=== PATIENT | male | born 1955 | race Caucasian/White ===

== ENCOUNTER 2024-09-20 07:57 | Day surgery (SDC) | payer MEDICARE, OTHER, SELFPAY ==
[2024-09-12 06:15] VITALS: BMI 27.6
[2024-09-20] VITALS (11 sets, daily range): BP systolic 106–129; BP diastolic 64–81; BMI 27.2
[2024-09-20 10:23] LABS: ACT-LR - POC 308 Seconds (116-155)
[2024-09-20 10:42] LABS: ACT-LR - POC 308 Seconds (116-155)
[2024-09-20 11:03] LABS: ACT-LR - POC 292 Seconds (116-155)
--- NOTE | 2024-09-20 11:17 | ITS.CL.ABL ---
[employer] Manager - Ablation
Ablation
Procedure Report:
ELECTROPHYSIOLOGY ABLATION STUDY
�
DATE:: September 20, 2024�����������������������������REFERRING: Dr. Oscar Morris
�
INDICATION: Paroxysmal supraventricular tachycardia in the form of atrial fibrillation.��Atypical atrial flutter
�
HISTORY: See H and P.��As above
�
ANTIARRHYTHMIC DRUG: Metoprolol
�
PRE-PROCEDURE FRANKIE: No atrial thrombus
�
PRESENTING RHYTHM: Sinus bradycardia
�
'TIME-OUT':��called and confirmed.
�
SEDATION/ANESTHESIA:��provided via the anesthesia department using general anesthesia (LMA).
�
INTRAVENOUS/ARTERIAL ACCESS:
Right femoral venous - 8Fr
Left femoral venous - 8 Fr, 6 Fr
Ultrasound guidance for bilateral femoral vein access was utilized by me to obtain access with demonstration of normal anatomy
CHADS-VASC Score:
�
HAS-Bled Score
�
PROCEDURE:
1.��A decapolar CS catheter was placed within the CS for mapping and pacing.��This was also used as the reference catheter for the 3-D map.
�
2. The intracardiac ultrasound catheter was positioned in the RA to identify the FO for targeting of transseptal puncture, assist��in identification of the pulmonary vein ostia, monitoring pre and post ablation pulmonary vein flow velocities,
monitoring for 'bubble' formation during RF application as a sign of thermal injury,��and to monitor for pericardial effusion during mapping and ablation procedure.���Left atrial size, LV ejection fraction, and pulmonary vein flows were monitored
pre and post ablation procedure. The other valves were inspected and found to be free of significant regurgitation or stenosis.
�
3.��Half of the calculated heparin bolus was administered prior to the first transeptal puncture.��Transseptal puncture was performed to diagnose RA and LA pressure so that safety of LA mapping and ablation could be further assessed, and to access
the left atrium and pulmonary veins for mapping and ablation.��This entailed advancing an 16 [place] Contour with needle and with dilator into the superior vena cava and withdrawing both (monitoring intracardiac ultrasound, fluoroscopy and tip
pressure) with the tip oriented toward the atrial septum.��The fossa ovalis was engaged (indicated by sudden displacement of the sheath tip as well as tenting of the fossa seen on intracardiac ultrasound).��Left atrial access required a pass with
the [place] needle extended.��Left atrial catheter position was confirmed by pressure monitoring (RA mean pressure 8 mm Hg and LA mean pressure 12 mm Hg), LA saturation (99%),��as well as fluoroscopy.��The sheath was advanced over the dilator
and positioned in the left atrium.��This procedure was repeated for the Agilis sheath.��The remainder of the calculated heparin bolus was administered and heparin was
infused to maintain ACT at 300 -350 seconds throughout the case.
�
4.��RA pacing was performed via the proximal decapolar poles and LA pacing was performed via the distal decapolr poles.
�
5. A quadrapolar catheter was first positioned at the His position for His Bundle recording which was tagged via the 3-D Navex sytem, and then passed to the RVA for RV pacing and recording.
�
6. The multipolar catheter and PFA catheter were placed in each of the LIPV, LSPV, RSPV and the RIPV.��
�
7.��Next, a 3-D map was created using Navex.���A 3-D reconstructed CT image was compared to the 3-D Navex map to assist in anatomic interpretation, mapping and ablation.��The CT image and the NavX image were fused.
�
8. A total of 105 lesions were given to the left atrial posterior wall and the 4 pulmonary veins. Entrance exit block was achieved in all 4 pulmonary veins plus left atrial posterior wall. Once entrance and exit block was confirmed in all 4
pulmonary veins and the left atrial posterior wall this was reconfirmed with a multipolar catheter and extrastimuli from the atrium were given without other nonpulmonary vein triggers for atrial fibrillation or other mechanisms of arrhythmia
inducible.
9. Normal sinus node and AV danie function noted.
TOTAL FLOURO TIME: 25.6 minutes
�
TOTAL RF DURATION: 0 minutes
�
REVERSAL OF HEPARIN: 35 mg of protamine, slow IV administration
�
COMPLICATIONS:
None
Intracardiac US shows no pericardial effusion post ablation.
�
SUMMARY:��
Complex left atrial mapping and ablation.
Isolation of all 4 pulmonary veins and the left atrial posterior wall as above
�
RECOMMENDATIONS:
1. Out of bed in 4 hours
2. Resume anticoagulation
3.��Consider same-day discharge
4.��Outpatient follow-up with Dr. Morris
�
Copy to: Dr. Oscar Morris
�
[2024-09-20] MEDS: PERCOCET 5/325 1 TABLET PO (12:14)
[2024-09-20] MEDS: TORADOL 30 MG IV (12:39)
--- NOTE | 2024-09-20 15:50 | W.PN.UPDATE ---
Update Note
Progress Note Update
Pt seen post PFA/Flutter ablation. Bilat groins without ht/bleeding, oob ambulating, urinating without difficulty. Post EKG NSR 60s. Significant back pain while in bed, relieved with percocet and toradol. Resume Xarelto with one dose tonight and
then restart regular time tomorrow morning. Continue other meds as before. Followup at [facility] as scheduled. Home today if groin site/tele remain stable.
== END 2024-09-20 16:00 | disposition home or self-care (01) ==
LOC: CATH 07:57
PROVIDERS: ATTENDING PHYSICIAN Internal Medicine Cardiovascular Disease; FAMILY PHYSICIAN Internal Medicine Sports Medicine; OTHER PHYSICIAN Internal Medicine Cardiovascular Disease
DX: I48.91 Unspecified atrial fibrillation (principal); I48.4 Atypical atrial flutter; I10 Essential (primary) hypertension; Z79.899 Other long term (current) drug therapy; R00.2 Palpitations; R53.83 Other fatigue; E78.5 Hyperlipidemia, unspecified; M10.9 Gout, unspecified; G47.00 Insomnia, unspecified; K57.90 Diverticulosis of intestine, part unspecified, without perforation or abscess without bleeding; Z90.49 Acquired absence of other specified parts of digestive tract; Z79.01 Long term (current) use of anticoagulants; Z79.890 Hormone replacement therapy
CPT/HCPCS: C1732; C1894; C1730; C1769; C1892; C1759; C1733; 85347; 86900; 86901; 93005; 93656; 93657; C1766

== ENCOUNTER 2024-09-20 19:49 | Emergency (ER) | payer MEDICARE, OTHER, SELFPAY ==
[2024-09-20 19:55] VITALS: BP 156/82
[2024-09-20 20:22] VITALS: BMI 29.0
--- NOTE | 2024-09-20 23:45 | ED.GENMED ---
History of Present Illness
General
Chief Complaint: Post Operative Problem(s)
Source: patient and spouse
Exam Limitations: none
Nursing documentation reviewed up to this point in time: agreed with
History of Present Illness
History of Present Illness:
Patient status post outpatient elective cardiac ablation secondary to atrial flutter/fibrillation earlier today, currently taking Xarelto, presents to ED secondary to persistent in his left groin, which is still puncture site for the ablation
procedure. Denies new trauma. Denies dizziness or weakness. Denies shortness of breath. Denies loss of sensation or weakness of the affected leg.
Past History
Past History
ED Past Medical History: HTN, Hypercholesterolemia and Other (Small bowel obstruction)
ED Past Surgical History: Appendectomy, Bowel resection (x 2 2002), Orthopedic and Tonsilectomy
Social History
Tobacco: Former smoker
Alcohol: None
Drug: None
Personal:
Living: with family
Review of Systems
Review of Systems
Allergies reviewed?: Yes
All Other Systems: ROS reviewed and negative except as documented in HPI and ROS
Constitutional: Reports no symptoms; Denies fever
Respiratory: Reports no symptoms; Denies trouble breathing
Cardiac: Reports no symptoms; Denies chest pain or palpitations
ABD/GI: Reports no symptoms; Denies nausea or vomiting
Musculoskeletal: Reports no symptoms
Skin: Reports other (Bleeding from puncture site)
Neurological: Reports no symptoms; Denies dizzy or weakness
Phy Exam
Physical Exam
Physical Exam:
Physical Exam
General: mild distress, not acutely ill. afebrile.
Head: nc/at. eomi
Neck: supple. no meningeal signs.
Abdomen: normal bowel sounds. not tender.
Neuro: alert and oriented. no focal neurological deficits
Skin: right groin: dry gauze with tegaderm over without bleeding. left groin: soaked bloody gauze noted.
Psychiatric: well kept. interactive and cooperative
Extremities: no edema. no calf tenderness.
Course
Orders/Labs/Results
Orders:
Orders
09/20/24 22:25
Tranexamic Acid 1,000 mg .ROUTE .STK-MED ONE
Vital Signs
Initial and Last Documented VS:
Initial Vital Signs
Temp Pulse Resp BP Pulse Ox
98.0 F 96 16 156/82 98
09/20/24 19:55 09/20/24 19:55 09/20/24 19:55 09/20/24 19:55 09/20/24 19:55
Last Documented Vital Signs
Temp Pulse Resp BP Pulse Ox
98.1 F 83 16 142/76 96
09/20/24 20:06 09/20/24 21:55 09/20/24 21:55 09/20/24 23:51 09/20/24 20:06
MDM/Problems Addressed
MDM/Problems Addressed:
2 x 2 gauze soaked with TXA applied to the bleeding site, with significant slowing down of the bleeding. As such, patient will be provided with another application of TXA soaked gauze prior to discharge. Advised PCP/cardiology follow-up as an
outpatient. Recommended withholding Xarelto for the next 48 hours and letting his pin sorter and bagger be aware.
Shortly after being discharged home, received phone call from patient stating that after he went home, he noticed continual bleeding around the gauze. As such, advised patient to come back to ED for re-evaluation/further treatment. Pt agreed to
return to ED for treatment.
*Critical Care Note
Total Time (30-74mins, 75-104mins- exclusive of procedures): Not Applicable
ED Attending Note
-
Portions of this chart may have been created with voice recognition software.� Occasional wrong word or��sound alike� substitutions may have occurred due to the inherent limitations of voice recognition software.
Discharge Plan
Departure
Patient Disposition: Home (Routine Discharge)
Date of Disposition: 09/20/24
Time of Disposition: 23:45
Patient with high blood pressure during this ER visit?: Yes
Discharge Problem:
Post-op bleeding
Instructions: Bleeding After Surgery
Prescriptions:
No Action
cyclobenzaprine 10 MG tablet
10 mg PO HS PRN (Reason: muscle spasms)
docusate sodium 100 MG capsule
100 mg PO DAILY
amlodipine 5 MG tablet
7.5 mg PO DAILY
oxycodone-acetaminophen 5 MG/325 MG tablet
0.5 tab PO Q4H PRN (Reason: moderate pain)
calcium polycarbophil [Fiber-Tabs] 625 MG tablet
1,250 mg PO DAILY
testosterone cypionate 200 MG/1 ML oil
200 mg IM Q3W
rosuvastatin 10 MG tablet
10 mg PO DAILY
allopurinol 100 mg tablet
200 mg PO HS
fexofenadine-pseudoephedrine [Rehana-D 24 Hour] 180-240 mg Tablet Extended Release 24 Hr
1 tab PO DAILY
Xarelto 20 mg tablet
20 mg PO DAILY
Saline Nasal 0.65 % Aerosol,[place]
1 spray intranasal QIDPRN PRN (Reason: dryness) Qty: 44 0RF
metoprolol tartrate 25 mg Tablet
25 mg PO PRN PRN (Reason: afib)
fluticasone propionate 50 mcg/actuation [place],Suspension
2 spray INTRANASAL DAILY
amoxicillin 500 mg Tablet
500 mg PO PRN PRN (Reason: dental work)
Happy [place]
1 dose PO HS
nicotine (polacrilex) [Nicorette] 2 mg Gum
32 mg PO DAILY
metoprolol succinate 25 mg Tablet Extended Release 24 Hr
25 mg PO HS
zolpidem [Ambien] 10 mg Tablet
10 mg PO HS PRN (Reason: sleep)
Referrals:
Te Marr MD [Family Provider] -
Activity Restrictions/Additional Instructions:
As discussed, please follow-up with your pin sorter and bagger or primary care physician for reevaluation, including reevaluation of the bleeding site. In the meantime, recommend withholding Xarelto over the next 48 hours.
Interventions
Interventions:
*Risk Screen - Suicide Last Done: 09/20/24 19:55
*General Assessment Last Done: 09/20/24 19:55
*Neglect/Abuse Screening Last Done: 09/20/24 21:42
*ED COVID-19 Vaccine History Last Done: 09/20/24 19:55
*Nursing Disposition Last Done: 09/20/24 23:58
ED-Skin Assessment Last Done: 09/20/24 20:23
Discharge Date and Time
Discharge Date/Time: 09/20/24 23:58
Print Language: POLISH
[2024-09-20 23:51] VITALS: BP 142/76
--- NOTE | 2024-09-21 12:17 | W.PN.UPDATE ---
Update Note
Progress Note Update
Spoke with patient earlier this morning by phone and asked him to come to our outpatient holding area for evaluation of his left venous access site. By history over the phone presumably this is a skin issues and presumably could be addressed by
lidocaine with epinephrine injection and a superficial stitch. He did call the office yesterday and was evaluated in the emergency room and discharged in stable condition with hemostasis last night. He was also discharged in stable condition with
hemostasis from our post procedure unit yesterday. I had a conversation with the patient and asked him to come to evaluation today and he is amenable. Further management based upon inspection upon presentation.
--- NOTE | 2024-09-21 15:08 | W.PN.UPDATE ---
Update Note
Progress Note Update
Examined patient. He has a superficial skin use at the left femoral vein venous access sites. There is no hematoma or bruit. The site is nontender. Bleeding is purple�venous. After sterile prep lidocaine with epinephrine was injected which
stopped oozing. A mattress stitch was placed with a curved 0 silk needle which brought about adequate hemostasis and was dressed sterilely. Plan will be to have the patient return on Thursday for cutting of the stitch and reinspection and will be
observed for 20 to 30 minutes in our holding area prior to sending the patient home today. I took time to answer all questions of patient and
== END 2024-09-20 23:58 | disposition home or self-care (01) ==
LOC: EMR 19:49
PROVIDERS: EMERGENCY PHYSICIAN Emergency Medicine; FAMILY PHYSICIAN Internal Medicine Sports Medicine
DX: L76.22 Postprocedural hemorrhage of skin and subcutaneous tissue following other procedure (principal); I48.91 Unspecified atrial fibrillation; I10 Essential (primary) hypertension; E78.00 Pure hypercholesterolemia, unspecified; Z79.01 Long term (current) use of anticoagulants; Z87.891 Personal history of nicotine dependence; Z90.49 Acquired absence of other specified parts of digestive tract
CPT/HCPCS: 99283; 86900; 86901; 93005

== ENCOUNTER → 2024-09-21 14:00 | Day surgery (SDC) | payer MEDICARE, OTHER, SELFPAY | END | disposition home or self-care (01) | LOC: CATH 14:00 | PROVIDERS: ATTENDING PHYSICIAN Internal Medicine Cardiovascular Disease | DX: L76.22 Postprocedural hemorrhage of skin and subcutaneous tissue following other procedure (principal); Y83.8 Other surgical procedures as the cause of abnormal reaction of the patient, or of later complication, without mention of misadventure at the time of the procedure; I48.92 Unspecified atrial flutter; I48.91 Unspecified atrial fibrillation; Z79.899 Other long term (current) drug therapy; Z79.01 Long term (current) use of anticoagulants | CPT/HCPCS: 12001 ==